=== PATIENT | male | born 1935 | race Hispanic/Latino ===

== ENCOUNTER 2022-03-15 21:15 | Inpatient (IN) | payer MEDICARE ==
[~2022-03-15] VITALS: Ht 165.1 cm; Wt 68.9 kg
[~2022-03-15 21:15] MED LIST: FINESTERIDE; GLYBURIDE; LOVASTATIN; XANAX
[2022-03-15] MEDS ORDERED: METHYLPREDNISOLONE SOD SUCC 125 MG/2ML VIAL IV ONE (21:45)
[2022-03-15] MEDS ORDERED: ALBUTEROL/IPRATROPIUM 3 ML NEB NEB PRN (21:45)
[2022-03-15] MEDS ORDERED: SODIUM CHLORIDE 0.9% 1000ML 1,000 ML IV SCH (21:45)
[2022-03-15 21:46] LABS: BASOPHILS # (AUTO) 0.1 (0.0-0.1); BASOPHILS % 0.5 % (0.0-1.0); EOSINOPHILS # (AUTO) 1.2 (0.0-0.4); EOSINOPHILS % 9.3 % (0.0-6.0); HEMATOCRIT 39.8 % (38.2-49.6); HEMOGLOBIN 11.7 g/dL (14.0-18.0); LYMPHOCYTES # (AUTO) 0.9 (1.0-3.2); LYMPHOCYTES % 6.7 % (18.0-39.1); MEAN CORPUSCULAR HEMOGLOBIN 25.1 pg (28-32); MEAN CORPUSCULAR HGB CONC 29.4 g/dL (31-35); MEAN CORPUSCULAR VOLUME 85.4 fL (81-99); MONOCYTES % 8.2 % (4.4-11.3); NEUTROPHILS # (AUTO) 9.5 (2.1-6.9); NEUTROPHILS % 74.9 % (38.7-80.0); PLATELET COUNT 263 x10e3/uL (140-360); RED BLOOD COUNT 4.66 x10e6/uL (4.3-5.7); RED CELL DISTRIBUTION WIDTH 17.6 % (11.7-14.4)
[2022-03-15] MEDS ORDERED: SODIUM CHLORIDE 0.9% 1000ML 1,000 ML ONE (21:46)
[2022-03-15 22:07] LABS: ALBUMIN 3.3 g/dL (3.5-5.0); ALBUMIN/GLOBULIN RATIO 0.8 (0.8-2.0); ANION GAP 14.2 mmol/L (8-16); CALCIUM 8.7 mg/dL (8.4-10.2); CREATININE, SERUM 1.24 mg/dL (0.72-1.25); POTASSIUM 4.2 mmol/L (3.5-5.1)
[2022-03-15] MEDS ORDERED: ACETAMINOPHEN 325 MG TAB PO ONE (22:30)
[2022-03-15] MEDS ORDERED: VASOTEC10 MG PO (22:31)
[2022-03-15] MEDS ORDERED: QUETIAPINE FUMA25 MG PO (22:31)
[2022-03-15] MEDS ORDERED: LOVASTATIN20 MG PO (22:31)
[2022-03-15] MEDS ORDERED: OMEPRAZOLE20 MG PO (22:31)
[2022-03-15] MEDS ORDERED: DUTASTERIDE0.5 MG PO (22:31)
[2022-03-15] MEDS ORDERED: GLIMEPIRIDE4 MG PO (22:31)
[2022-03-15] MEDS ORDERED: PAROXETINE HCL20 MG PO (22:31)
[2022-03-15] MEDS ORDERED: ACETAMINOPHEN 325 MG TAB ONE (22:46)
[2022-03-16] MEDS ORDERED: FUROSEMIDE INJ 10 MG/ML 2 ML VIAL IV ONE (01:00)
[2022-03-16] MEDS ORDERED: FUROSEMIDE INJ 10 MG/ML 2 ML VIAL ONE (01:03)
[2022-03-16 02:17] LABS: BACTERIA,URINE FEW /HPF; CLARITY,URINE CLEAR (CLEAR); COLOR,URINE YELLOW (YELLOW); EPITHELIAL CELLS,URINE FEW /LPF; KETONES,URINE NEGATIVE (NEGATIVE); LEUKOCYTE ESTERASE ,URINE NEGATIVE (NEGATIVE); NITRITE,URINE NEGATIVE (NEGATIVE); PROTEIN,URINE DIPSTICK NEGATIVE (NEGATIVE); RBC,URINE 0-5 /HPF (0-5); URINE UROBILINOGEN 0.2 mg/dL (0.2 - 1); WBC,URINE (MAN) 0-5 /HPF (0-5)
[2022-03-16 04:34] LABS: BASOPHILS % 0.1 % (0.0-1.0); EOSINOPHILS % 0.4 % (0.0-6.0); HEMATOCRIT 36.7 % (38.2-49.6); HEMOGLOBIN 10.9 g/dL (14.0-18.0); LYMPHOCYTES # (AUTO) 0.4 (1.0-3.2); LYMPHOCYTES % 3.5 % (18.0-39.1); MEAN CORPUSCULAR HEMOGLOBIN 25.1 pg (28-32); MEAN CORPUSCULAR HGB CONC 29.7 g/dL (31-35); MEAN CORPUSCULAR VOLUME 84.4 fL (81-99); MONOCYTES # (AUTO) 0.1 (0.2-0.8); MONOCYTES % 1.1 % (4.4-11.3); NEUTROPHILS # (AUTO) 9.3 (2.1-6.9); NEUTROPHILS % 94.6 % (38.7-80.0); RED BLOOD COUNT 4.35 x10e6/uL (4.3-5.7); RED CELL DISTRIBUTION WIDTH 17.3 % (11.7-14.4)
[2022-03-16 04:49] LABS: PLATELET COUNT 233 x10e3/uL (140-360)
[2022-03-16 04:59] LABS: ALBUMIN 3.1 g/dL (3.5-5.0); ALBUMIN/GLOBULIN RATIO 0.8 (0.8-2.0); ANION GAP 14.1 mmol/L (8-16); CALCIUM 8.5 mg/dL (8.4-10.2); CREATININE, SERUM 1.16 mg/dL (0.72-1.25); POTASSIUM 4.1 mmol/L (3.5-5.1)
[2022-03-16] MEDS: PAROXETINE HCL 20 MG TAB PO SCH (12:17)
[2022-03-16] MEDS: PANTOPRAZOLE SOD 40 MG TABEC PO SCH (12:17)
[2022-03-16 15:25] VITALS: BP 149/74
[2022-03-16 16:28] VITALS: BP 149/74
[2022-03-16 16:37] VITALS: BP 149/74
[2022-03-16 20:00] VITALS: BP 178/84
[2022-03-16] MEDS ORDERED: DEXTROSE 50% SYRINGE 50 ML IV PRN (20:30)
[2022-03-16 21:00] VITALS: BP 178/84
[2022-03-16] MEDS: QUETIAPINE FUMARATE 25 MG TAB PO SCH (21:00)
[2022-03-16] MEDS: INSULIN GLARGINE 100 UNITS/ML VIAL SQ SCH (21:00)
[2022-03-16] MEDS: INSULIN LISPRO 100 UNIT/1 ML 3ML VIAL SQ SCH (21:00)
[2022-03-16] MEDS: DUTASTERIDE 0.5 MG CAP PO SCH (21:00)
[2022-03-16] MEDS: SIMVASTATIN 20 MG TAB PO SCH (21:00)
[2022-03-16] MEDS ORDERED: NON-FORMULARY MEDICATION (Lovastatin 20 MG) PO SCH (21:00)
[2022-03-16 21:51] LABS: ANION GAP 18.1 mmol/L (8-16); CREATININE, SERUM 1.38 mg/dL (0.72-1.25); POTASSIUM 4.1 mmol/L (3.5-5.1)
[2022-03-17] VITALS (9 sets, daily range): BP systolic 131–183; BP diastolic 55–96
[2022-03-17 05:55] LABS: BASOPHILS % 0.2 % (0.0-1.0); EOSINOPHILS % 0.1 % (0.0-6.0); HEMATOCRIT 33.6 % (38.2-49.6); HEMOGLOBIN 10.3 g/dL (14.0-18.0); LYMPHOCYTES # (AUTO) 0.8 (1.0-3.2); LYMPHOCYTES % 5.8 % (18.0-39.1); MEAN CORPUSCULAR HEMOGLOBIN 25.3 pg (28-32); MEAN CORPUSCULAR HGB CONC 30.7 g/dL (31-35); MEAN CORPUSCULAR VOLUME 82.6 fL (81-99); MONOCYTES # (AUTO) 0.8 (0.2-0.8); MONOCYTES % 5.6 % (4.4-11.3); NEUTROPHILS # (AUTO) 12.3 (2.1-6.9); NEUTROPHILS % 87.7 % (38.7-80.0); PLATELET COUNT 251 x10e3/uL (140-360); RED BLOOD COUNT 4.07 x10e6/uL (4.3-5.7); RED CELL DISTRIBUTION WIDTH 17.3 % (11.7-14.4)
[2022-03-17 06:03] LABS: ANION GAP 13.7 mmol/L (8-16); CALCIUM 8.4 mg/dL (8.4-10.2); CREATININE, SERUM 0.87 mg/dL (0.72-1.25); POTASSIUM 3.7 mmol/L (3.5-5.1)
[2022-03-17] MEDS: INSULIN LISPRO 100 UNIT/1 ML 3ML VIAL SQ SCH ×4 (07:30→23:39)
[2022-03-17] MEDS ORDERED: SODIUM CHLORIDE 0.9% 250ML 250 ML ONE (08:10)
[2022-03-17] MEDS: DUTASTERIDE 0.5 MG CAP PO SCH (08:37)
[2022-03-17] MEDS: PANTOPRAZOLE SOD 40 MG TABEC PO SCH (08:37)
[2022-03-17] MEDS: GLIMEPIRIDE 2 MG TAB PO SCH ×2 (08:37→12:24)
[2022-03-17] MEDS: ENALAPRIL MALEATE 10 MG TAB PO SCH (08:37)
[2022-03-17] MEDS: PAROXETINE HCL 20 MG TAB PO SCH (08:38)
[2022-03-17] MEDS: HYDRALAZINE HCL 20 MG/ML VIAL IV PRN (17:29)
[2022-03-17] MEDS: INSULIN GLARGINE 100 UNITS/ML VIAL SQ SCH (21:00)
[2022-03-17] MEDS ORDERED: AZITHROMYCIN250 MG PO (21:01)
[2022-03-17] MEDS: QUETIAPINE FUMARATE 25 MG TAB PO SCH (21:11)
[2022-03-17] MEDS: SIMVASTATIN 20 MG TAB PO SCH (21:11)
[2022-03-17] MEDS ORDERED: METHYLPREDNISOLONE SOD SUCC 40 MG/ML VIAL 1ML IV ONE (22:00)
[2022-03-18] VITALS: BP 140/52
[2022-03-18 04:00] VITALS: BP 168/69
[2022-03-18] MEDS: INSULIN LISPRO 100 UNIT/1 ML 3ML VIAL SQ SCH ×3 (07:30→10:55)
[2022-03-18 07:54] VITALS: BP 190/81
[2022-03-18 08:27] VITALS: BP 190/81
[2022-03-18] MEDS: GLIMEPIRIDE 2 MG TAB PO SCH ×2 (08:36→10:55)
[2022-03-18] MEDS: ENALAPRIL MALEATE 10 MG TAB PO SCH (08:37)
[2022-03-18] MEDS: DUTASTERIDE 0.5 MG CAP PO SCH (08:37)
[2022-03-18] MEDS: HYDRALAZINE HCL 20 MG/ML VIAL IV PRN (08:37)
[2022-03-18] MEDS: PANTOPRAZOLE SOD 40 MG TABEC PO SCH (08:37)
[2022-03-18] MEDS: PAROXETINE HCL 20 MG TAB PO SCH (09:00)
[2022-03-18 10:00] LABS: BASOPHILS % 0.1 % (0.0-1.0); HEMATOCRIT 41.2 % (38.2-49.6); HEMOGLOBIN 12.7 g/dL (14.0-18.0); LYMPHOCYTES # (AUTO) 0.5 (1.0-3.2); LYMPHOCYTES % 3.3 % (18.0-39.1); MEAN CORPUSCULAR HEMOGLOBIN 25.5 pg (28-32); MEAN CORPUSCULAR HGB CONC 30.8 g/dL (31-35); MEAN CORPUSCULAR VOLUME 82.6 fL (81-99); MONOCYTES # (AUTO) 0.4 (0.2-0.8); MONOCYTES % 2.7 % (4.4-11.3); NEUTROPHILS # (AUTO) 12.9 (2.1-6.9); NEUTROPHILS % 93.1 % (38.7-80.0); PLATELET COUNT 335 x10e3/uL (140-360); RED BLOOD COUNT 4.99 x10e6/uL (4.3-5.7); RED CELL DISTRIBUTION WIDTH 18.2 % (11.7-14.4)
[2022-03-18 10:23] LABS: ANION GAP 17.8 mmol/L (8-16); CALCIUM 8.5 mg/dL (8.4-10.2); CREATININE, SERUM 1.04 mg/dL (0.72-1.25); POTASSIUM 3.8 mmol/L (3.5-5.1)
[2022-03-18] MEDS ORDERED: INSULIN LISPRO 100 UNIT/1 ML 3ML VIAL SQ ONE ×2 (11:15→14:30)
[2022-03-18 12:55] VITALS: BP 156/61
[2022-03-18 14:00] VITALS: BP 156/64
[2022-03-18] MEDS ORDERED: amlodipine PO (14:14)
[2022-03-18] MEDS ORDERED: duoneb INH (14:20)
== END 2022-03-18 15:09 | disposition home or self-care (01) | DRG 206 ==
LOC: ER 21:19 → ERHOLD 03-16 00:57 → MED/SURG3 03-16 15:22 → OBSVTOIN 03-18 08:41
PROVIDERS: ADMIT Internal Medicine; ATTEND Internal Medicine
DX: J98.4 Other disorders of lung (principal); N40.0 Benign prostatic hyperplasia without lower urinary tract symptoms; Z87.891 Personal history of nicotine dependence; K21.9 Gastro-esophageal reflux disease without esophagitis; F41.9 Anxiety disorder, unspecified; E11.65 Type 2 diabetes mellitus with hyperglycemia; R94.4 Abnormal results of kidney function studies; R00.0 Tachycardia, unspecified; N42.9 Disorder of prostate, unspecified; Z20.822 Contact with and (suspected) exposure to COVID-19
CPT/HCPCS: 36415; 71045; 80048; 80053; 81001; 82550; 82948; 83605; 83880; 84484; 85025; 87040; 87086; 93005; 94640; 94760; 94799; 99284; G0378; J0360; J0696; J1940; J2920; J2930; J7030; J7050